=== PATIENT | female | born 1965 | race Caucasian/White ===

== ENCOUNTER 2021-05-29 12:59 | Emergency (ER) | payer OTHER, MEDICAID ==
[~2021-05-29] VITALS: Ht 157.5 cm; Wt 77.1 kg
[2021-05-29 13:36] VITALS: BP 136/52
[2021-05-29] MEDS ORDERED: HYDROcodone/APAP 5/325 MG 1 TAB TAB PO ONE (14:10)
[2021-05-29] MEDS ORDERED: TRAM50TA1 PO ×2 (14:10)
[2021-05-29 15:05] VITALS: BP 130/62
--- NOTE | 2021-05-29 15:05 | NUR ---
Patient discharged with v/s stable. Written and verbal after care instructions given FOR ATHRITIS and explained. Patient alert, oriented and verbalized understanding of instructions. Ambulatory with steady gait. All questions addressed prior to discharge. ID band removed. Patient advised to follow up with PMD. Rx of TRAMADOL given. Patient educated on indication of medication including possible reaction and side effects. Opportunity to ask questions provided and answered.
== END 2021-05-29 15:05 | disposition home or self-care (01) ==
LOC: MED 12:59
DX: M13.80 Other specified arthritis, unspecified site (principal)
CPT/HCPCS: 99283